=== PATIENT | male | born 1960 | race Caucasian/White ===

== ENCOUNTER 2020-07-07 07:16 | Inpatient (IN) | payer MEDICAID ==
[~2020-07-07] VITALS: Ht 190.5 cm; Wt 98.1 kg
[~2020-07-07 07:16] MED LIST: ALB5IS NEB; ALBUAER3 IN; FLUT250M2 INH; OME20T PO; THIA50CA PO
[2020-07-07] MEDS ORDERED: MORPHINE SULFATE 4 MG/ML SYR/VIAL IV PRN (08:00)
[2020-07-07] MEDS ORDERED: ONDANSETRON HCL 4 MG/2 ML VIAL IV ONE (08:00)
[2020-07-07] MEDS ORDERED: SODIUM CHLORIDE 0.9% 500 ML IV ONE (08:00)
[2020-07-07] MEDS ORDERED: ACETAMINOPHEN 325 MG TAB PO PRN ×2 (08:00→16:15)
[2020-07-07] MEDS ORDERED: VANCOMYCIN PER PHARMACY 0 MG IV SCH ×2 (08:15→16:15)
[2020-07-07] MEDS: PIPERACILLIN-TAZOB 3.375GM 100 ML IV SCH ×3 (08:30→20:30)
[2020-07-07 08:39] LABS: Alanine Aminotransferase 36 U/L (16-61); Albumin 3.2 g/dL (3.4-5.0); Anion Gap 11 (5-15); Aspartate Aminotransferase 34 U/L (15-37); BUN/Creatinine Ratio 11.3; Blood Urea Nitrogen 11 mg/dL (7-18); Calcium 8.2 mg/dL (8.5-10.1); Carbon Dioxide 26 mmol/L (21-32); Chloride 98 mmol/L (98-107); GFR African American 101 mL/min; GFR Non-African American 83 mL/min; Glucose 118 mg/dL (74-106); Potassium 4.1 mmol/L (3.5-5.1); Sodium 135 mmol/L (136-145)
[2020-07-07 08:41] LABS: Lactic Acid w/Reflex 4.4 mmol/L (0.4-2.0); Total Protein 7.3 g/dL (6.4-8.2)
[2020-07-07 08:44] LABS: Alkaline Phosphatase 121 U/L (45-117); Bilirubin, Total 1.3 mg/dL (0.2-1.0); Creatine Kinase IFCC 70 U/L (39-308)
[2020-07-07 08:58] LABS: Basophils # (auto) 0.1 10 ^3/uL (0-0.2); Basophils % (auto) 0.3 % (0.0-2.0); Eosinophils # (auto) 0 10 ^3/uL (0-0.8); Hematocrit 51.3 % (41.0-53.0); Hemoglobin 17.5 g/dL (13.5-17.5); Lymphocytes # (auto) 1.3 10 ^3/uL (0.4-5.4); Lymphocytes % (auto) 6.8 % (10.0-50.0); Mean Corpuscular Hemoglobin 36.5 pg (28.0-32.0); Mean Corpuscular Hgb Conc. 34.1 g/dL (32.0-36.0); Mean Corpuscular Volume 107.1 fL (80.0-100.0); Monocytes # (auto) 0.3 10 ^3/uL (0-1.3); Monocytes % (auto) 1.8 % (0.0-12.0); Neutrophils # (auto) 17.6 10 ^3/uL (1.6-8.6); Neutrophils % (auto) 91.1 % (37.0-80.0); Nucleated Red Blood Cells % 0.1 %; Red Blood Cells 4.79 10^6/uL (4.5-5.90); Red Cell Distribution Width 14.2 % (11.8-14.3); White Blood Cell 19.3 10^3/uL (4.4-10.8)
[2020-07-07 09:18] LABS: INR 1.08 (0.9-1.15); Partial Thromboplastin Time 26.4 sec (23.0-31.2)
[2020-07-07] MEDS ORDERED: VANCOMYCIN 1GM/250ML 250 ML IV SCH (10:00)
[2020-07-07 11:43] VITALS: BP 125/80
[2020-07-07] MEDS ORDERED: PIPERACILLIN-TAZOB 3.375GM 100 ML IV SCH (12:00)
[2020-07-07] MEDS: VANCOMYCIN 1GM/250ML 250 ML IV SCH (12:06)
[2020-07-07 13:30] VITALS: BP 125/80
[2020-07-07] MEDS ORDERED: IOPAMIDOL 76 % (ISOVUE-370) 100ML BTL IV ONE (13:32)
[2020-07-07 13:44] VITALS: BP 121/82
[2020-07-07] MEDS ORDERED: MORPHINE SULFATE 4 MG/ML SYR/VIAL IV ONE (15:45)
[2020-07-07] MEDS ORDERED: SODIUM CHLORIDE 0.9% 1,000 ML IV ONE (15:45)
[2020-07-07] MEDS ORDERED: MORPHINE SULFATE INJECTION 2 MG/ML SYRG IV PRN (16:15)
[2020-07-07] MEDS ORDERED: NITROGLYCERIN 0.4 MG SL TAB SL PRN (16:15)
[2020-07-07] MEDS ORDERED: ONDANSETRON HCL 4 MG/2 ML VIAL IV PRN (16:15)
[2020-07-07] MEDS: ENOXAPARIN SOD 40 MG/0.4 ML SYRINGE SC SCH (16:33)
[2020-07-07 17:54] VITALS: BP 118/88
[2020-07-07] MEDS ORDERED: PIPERACILLIN-TAZOB 2.25GM 50 ML IV SCH (18:00)
[2020-07-07 20:00] VITALS: BP 108/84
[2020-07-07 22:00] VITALS: BP 119/85
[2020-07-08] VITALS (36 sets, daily range): BP systolic 91–152; BP diastolic 52–94
[2020-07-08] MEDS: ALBUTEROL SULF 2.5 MG/0.5ML(0.5%) NEB SOLN NEB PRN ×2 (00:06→06:16)
[2020-07-08] MEDS: VANCOMYCIN 1GM/250ML 250 ML IV SCH ×3 (00:53→12:46)
[2020-07-08] MEDS: methylPREDNISolone SOD SUCC 40 MG/ML VL IV SCH ×4 (00:53→22:58)
[2020-07-08] MEDS: PIPERACILLIN-TAZOB 3.375GM 100 ML IV SCH ×4 (02:30→22:58)
[2020-07-08 05:26] LABS: Basophils # (auto) 0 10 ^3/uL (0-0.2); Basophils % (auto) 0.1 % (0.0-2.0); Eosinophils # (auto) 0 10 ^3/uL (0-0.8)
[2020-07-08 05:28] LABS: Eosinophils % (auto) 0.1 % (0.0-7.0); Hematocrit 43.9 % (41.0-53.0); Hemoglobin 15.2 g/dL (13.5-17.5); Lymphocytes # (auto) 0.6 10 ^3/uL (0.4-5.4); Lymphocytes % (auto) 3.5 % (10.0-50.0); Mean Corpuscular Hemoglobin 37.1 pg (28.0-32.0); Mean Corpuscular Hgb Conc. 34.7 g/dL (32.0-36.0); Mean Corpuscular Volume 106.9 fL (80.0-100.0); Monocytes # (auto) 0.4 10 ^3/uL (0-1.3); Monocytes % (auto) 2.3 % (0.0-12.0); Red Cell Distribution Width 14.3 % (11.8-14.3)
[2020-07-08 05:46] LABS: Potassium 4.4 mmol/L (3.5-5.1)
[2020-07-08 05:54] LABS: BUN/Creatinine Ratio 22.9; Calcium 8.4 mg/dL (8.5-10.1)
[2020-07-08] MEDS: PANTOPRAZOLE 40 MG/10 ML VIAL INJ IV SCH (09:06)
[2020-07-08] MEDS: ENOXAPARIN SOD 40 MG/0.4 ML SYRINGE SC SCH (09:06)
[2020-07-08] MEDS ORDERED: ALBUTEROL SULF 2.5 MG/0.5ML(0.5%) NEB SOLN NEB PRN (14:45)
[2020-07-08] MEDS ORDERED: IPRATROPIUM BROM 0.5 MG/2.5ML INH SOL NEB PRN (14:45)
[2020-07-08] MEDS: IPRATROPIUM BROM 0.5 MG/2.5ML INH SOL NEB SCH ×3 (15:11→21:58)
[2020-07-08] MEDS: ALBUTEROL SULF 2.5 MG/0.5ML(0.5%) NEB SOLN NEB SCH ×3 (15:11→21:58)
[2020-07-08] MEDS: SODIUM CHLORIDE 0.9% 1,000 ML IV SCH (15:32)
[2020-07-08] MEDS: HYDROcodone-ACET 5/325MG TAB PO PRN (18:12)
[2020-07-09] VITALS (22 sets, daily range): BP systolic 119–175; BP diastolic 78–113
[2020-07-09] MEDS: IPRATROPIUM BROM 0.5 MG/2.5ML INH SOL NEB SCH ×6 (02:23→22:06)
[2020-07-09] MEDS: ALBUTEROL SULF 2.5 MG/0.5ML(0.5%) NEB SOLN NEB SCH ×6 (02:23→22:06)
[2020-07-09] MEDS: SODIUM CHLORIDE 0.9% 1,000 ML IV SCH ×4 (06:45→21:51)
[2020-07-09] MEDS: methylPREDNISolone SOD SUCC 40 MG/ML VL IV SCH ×3 (07:32→21:42)
[2020-07-09] MEDS: PIPERACILLIN-TAZOB 3.375GM 100 ML IV SCH ×4 (07:33→21:00)
[2020-07-09] MEDS: MORPHINE SULFATE INJECTION 2 MG/ML SYRG IV PRN (07:38)
[2020-07-09] MEDS: PANTOPRAZOLE 40 MG/10 ML VIAL INJ IV SCH (09:51)
[2020-07-09] MEDS: ENOXAPARIN SOD 40 MG/0.4 ML SYRINGE SC SCH (09:52)
[2020-07-09] MEDS: HYDROcodone-ACET 5/325MG TAB PO PRN (11:56)
[2020-07-09] MEDS: VANCOMYCIN 1GM/250ML 250 ML IV SCH ×2 (12:34→20:00)
[2020-07-09] MEDS: ASPirin 325 MG TAB PO SCH (16:02)
[2020-07-09] MEDS: CARVEDILOL 3.125 MG TAB PO SCH ×2 (16:03→21:45)
[2020-07-09] MEDS: ENOXAPARIN SOD 100 MG/1 ML SYRINGE SC SCH (21:46)
[2020-07-10] VITALS (24 sets, daily range): BP systolic 107–167; BP diastolic 65–136
[2020-07-10] MEDS: PIPERACILLIN-TAZOB 3.375GM 100 ML IV SCH ×4 (02:07→20:30)
[2020-07-10] MEDS: IPRATROPIUM BROM 0.5 MG/2.5ML INH SOL NEB SCH ×6 (02:41→22:28)
[2020-07-10] MEDS: ALBUTEROL SULF 2.5 MG/0.5ML(0.5%) NEB SOLN NEB SCH ×6 (02:41→22:28)
[2020-07-10] MEDS: VANCOMYCIN 1GM/250ML 250 ML IV SCH ×3 (04:00→20:00)
[2020-07-10 04:18] LABS: Basophils # (auto) 0 10 ^3/uL (0-0.2); Basophils % (auto) 0.1 % (0.0-2.0); Eosinophils # (auto) 0 10 ^3/uL (0-0.8); Eosinophils % (auto) 0.1 % (0.0-7.0); Hematocrit 40.6 % (41.0-53.0); Hemoglobin 13.7 g/dL (13.5-17.5); Lymphocytes # (auto) 0.9 10 ^3/uL (0.4-5.4); Mean Corpuscular Hemoglobin 36.4 pg (28.0-32.0); Mean Corpuscular Hgb Conc. 33.8 g/dL (32.0-36.0); Mean Corpuscular Volume 107.8 fL (80.0-100.0); Monocytes # (auto) 0.4 10 ^3/uL (0-1.3); Monocytes % (auto) 3.4 % (0.0-12.0); Neutrophils # (auto) 9.7 10 ^3/uL (1.6-8.6); Neutrophils % (auto) 88.4 % (37.0-80.0); Nucleated Red Blood Cells % 0.1 %; Red Blood Cells 3.77 10^6/uL (4.5-5.90); Red Cell Distribution Width 14.3 % (11.8-14.3); White Blood Cell 10.9 10^3/uL (4.4-10.8)
[2020-07-10 04:23] LABS: BUN/Creatinine Ratio 33.3; Calcium 7.9 mg/dL (8.5-10.1); Magnesium 2.2 mg/dL (1.6-2.6); Potassium 5.1 mmol/L (3.5-5.1)
[2020-07-10] MEDS: SODIUM CHLORIDE 0.9% 1,000 ML IV SCH ×2 (06:05→22:45)
[2020-07-10] MEDS: methylPREDNISolone SOD SUCC 40 MG/ML VL IV SCH ×3 (06:10→22:15)
[2020-07-10] MEDS: HYDROcodone-ACET 5/325MG TAB PO PRN ×3 (08:52→22:49)
[2020-07-10] MEDS: PANTOPRAZOLE 40 MG/10 ML VIAL INJ IV SCH (09:03)
[2020-07-10] MEDS: ASPirin 325 MG TAB PO SCH (09:03)
[2020-07-10] MEDS: CARVEDILOL 3.125 MG TAB PO SCH ×2 (09:04→22:15)
[2020-07-10] MEDS: ENALAPRIL MALEATE 2.5 MG TAB PO SCH (09:04)
[2020-07-10] MEDS: ENOXAPARIN SOD 100 MG/1 ML SYRINGE SC SCH ×2 (09:05→22:15)
[2020-07-10] MEDS ORDERED: BUDESONIDE (INHALATION) 0.5 MG/2 ML NEB NEB ONE (15:00)
[2020-07-10] MEDS: BUDESONIDE (INHALATION) 0.5 MG/2 ML NEB NEB SCH (18:17)
[2020-07-10] MEDS: SENNA 8.6 MG TAB PO SCH (22:15)
[2020-07-10] MEDS: DOCUSATE SOD 100 MG CAP PO SCH (22:15)
[2020-07-11] VITALS (11 sets, daily range): BP systolic 127–156; BP diastolic 85–108
[2020-07-11] MEDS: PIPERACILLIN-TAZOB 3.375GM 100 ML IV SCH ×4 (02:28→20:48)
[2020-07-11] MEDS: HYDROcodone-ACET 5/325MG TAB PO PRN ×2 (03:46→09:37)
[2020-07-11] MEDS: VANCOMYCIN 1GM/250ML 250 ML IV SCH ×3 (03:46→20:02)
[2020-07-11 05:44] LABS: Basophils # (auto) 0 10 ^3/uL (0-0.2); Eosinophils # (auto) 0 10 ^3/uL (0-0.8); Hemoglobin 13.2 g/dL (13.5-17.5); Lymphocytes # (auto) 0.8 10 ^3/uL (0.4-5.4); Monocytes # (auto) 0.4 10 ^3/uL (0-1.3)
[2020-07-11] MEDS: methylPREDNISolone SOD SUCC 40 MG/ML VL IV SCH ×3 (05:47→22:05)
[2020-07-11 05:48] LABS: Lymphocytes % (auto) 11.7 % (10.0-50.0); Mean Corpuscular Hemoglobin 36.9 pg (28.0-32.0); Mean Corpuscular Hgb Conc. 34.7 g/dL (32.0-36.0); Mean Corpuscular Volume 106.4 fL (80.0-100.0); Monocytes % (auto) 5.1 % (0.0-12.0); Neutrophils % (auto) 83.2 % (37.0-80.0); Red Blood Cells 3.57 10^6/uL (4.5-5.90); Red Cell Distribution Width 13.8 % (11.8-14.3); White Blood Cell 7.2 10^3/uL (4.4-10.8)
[2020-07-11] MEDS: IPRATROPIUM BROM 0.5 MG/2.5ML INH SOL NEB SCH ×5 (06:01→22:37)
[2020-07-11] MEDS: ALBUTEROL SULF 2.5 MG/0.5ML(0.5%) NEB SOLN NEB SCH ×5 (06:01→22:37)
[2020-07-11 06:13] LABS: BUN/Creatinine Ratio 26.2; Potassium 4.2 mmol/L (3.5-5.1)
[2020-07-11] MEDS: PANTOPRAZOLE 40 MG/10 ML VIAL INJ IV SCH (09:57)
[2020-07-11] MEDS: DOCUSATE SOD 100 MG CAP PO SCH ×2 (09:57→22:06)
[2020-07-11] MEDS: CARVEDILOL 3.125 MG TAB PO SCH ×2 (09:58→22:06)
[2020-07-11] MEDS: ENALAPRIL MALEATE 2.5 MG TAB PO SCH (09:59)
[2020-07-11] MEDS: ENOXAPARIN SOD 100 MG/1 ML SYRINGE SC SCH (09:59)
[2020-07-11] MEDS ORDERED: ASPirin 81 mg TAB PO SCH (10:00)
[2020-07-11] MEDS: BUDESONIDE (INHALATION) 0.5 MG/2 ML NEB NEB SCH ×2 (10:40→18:48)
[2020-07-11] MEDS: FUROSEMIDE 20 MG/2 ML VIAL IV SCH (12:14)
[2020-07-11] MEDS ORDERED: hydrALAZINE HCL 20 MG/ML VL IV PRN (13:15)
[2020-07-11] MEDS: ACETYLCYSTEINE 10 %(100MG/ML) SOL 4ML NEB SCH ×2 (14:01→18:48)
[2020-07-11] MEDS ORDERED: ALBUTEROL SULF HFA 90MCG INH 200DOSE IN PRN (16:00)
[2020-07-11] MEDS: APIXABAN 5 MG TAB PO SCH (18:16)
[2020-07-11] MEDS: SENNA 8.6 MG TAB PO SCH (22:06)
[2020-07-11] MEDS: MORPHINE SULFATE INJECTION 2 MG/ML SYRG IV PRN (22:07)
[2020-07-12] MEDS: PIPERACILLIN-TAZOB 3.375GM 100 ML IV SCH ×4 (02:48→20:29)
[2020-07-12] MEDS: VANCOMYCIN 1GM/250ML 250 ML IV SCH ×3 (04:16→15:09)
[2020-07-12 05:00] VITALS: BP 149/97
[2020-07-12] MEDS: methylPREDNISolone SOD SUCC 40 MG/ML VL IV SCH ×3 (06:02→22:16)
[2020-07-12 06:57] LABS: Basophils # (auto) 0 10 ^3/uL (0-0.2); Eosinophils # (auto) 0 10 ^3/uL (0-0.8); Hemoglobin 14.2 g/dL (13.5-17.5); Nucleated Red Blood Cells % 0.1 %; White Blood Cell 8.5 10^3/uL (4.4-10.8)
[2020-07-12] MEDS: ALBUTEROL SULF 2.5 MG/0.5ML(0.5%) NEB SOLN NEB SCH ×4 (06:57→23:56)
[2020-07-12] MEDS: IPRATROPIUM BROM 0.5 MG/2.5ML INH SOL NEB SCH ×5 (06:57→23:56)
[2020-07-12] MEDS: ACETYLCYSTEINE 10 %(100MG/ML) SOL 4ML NEB SCH ×3 (06:58→21:06)
[2020-07-12 07:00] LABS: Basophils % (auto) 0.1 % (0.0-2.0); Eosinophils % (auto) 0.1 % (0.0-7.0); Hematocrit 41.4 % (41.0-53.0); Lymphocytes # (auto) 1.2 10 ^3/uL (0.4-5.4); Lymphocytes % (auto) 13.9 % (10.0-50.0); Mean Corpuscular Hemoglobin 36.2 pg (28.0-32.0); Mean Corpuscular Hgb Conc. 34.4 g/dL (32.0-36.0); Mean Corpuscular Volume 105.4 fL (80.0-100.0); Monocytes # (auto) 0.5 10 ^3/uL (0-1.3); Monocytes % (auto) 6.1 % (0.0-12.0); Neutrophils # (auto) 6.7 10 ^3/uL (1.6-8.6); Neutrophils % (auto) 79.8 % (37.0-80.0); Red Blood Cells 3.92 10^6/uL (4.5-5.90); Red Cell Distribution Width 13.9 % (11.8-14.3)
[2020-07-12] MEDS: BUDESONIDE (INHALATION) 0.5 MG/2 ML NEB NEB SCH ×2 (07:02→21:05)
[2020-07-12 07:30] LABS: Potassium 4.1 mmol/L (3.5-5.1)
[2020-07-12 07:34] LABS: BUN/Creatinine Ratio 27.1; Magnesium 2.3 mg/dL (1.6-2.6)
[2020-07-12 09:00] VITALS: BP 113/58
[2020-07-12] MEDS: APIXABAN 5 MG TAB PO SCH ×2 (10:15→17:49)
[2020-07-12] MEDS: DOCUSATE SOD 100 MG CAP PO SCH ×2 (10:16→22:16)
[2020-07-12] MEDS: FUROSEMIDE 20 MG/2 ML VIAL IV SCH (10:16)
[2020-07-12] MEDS: PANTOPRAZOLE 40 MG/10 ML VIAL INJ IV SCH (10:16)
[2020-07-12] MEDS: ENALAPRIL MALEATE 2.5 MG TAB PO SCH (10:16)
[2020-07-12] MEDS: CARVEDILOL 3.125 MG TAB PO SCH ×2 (10:17→22:17)
[2020-07-12 13:00] VITALS: BP 138/93
[2020-07-12] MEDS ORDERED: FURO1TAB31 PO (14:48)
[2020-07-12] MEDS ORDERED: ALBUAER3 IN (14:48)
[2020-07-12] MEDS ORDERED: IPRA0.00 IN (14:48)
[2020-07-12] MEDS ORDERED: APIX5TAB PO (14:48)
[2020-07-12] MEDS ORDERED: PRED20TA2 PO (14:48)
[2020-07-12] MEDS ORDERED: FLUT250M2 INH (14:48)
[2020-07-12] MEDS ORDERED: ENAL10TA12 PO (14:48)
[2020-07-12] MEDS ORDERED: CAR3125T PO (14:48)
[2020-07-12] MEDS ORDERED: HYDR-4902 PO (14:49)
[2020-07-12] MEDS ORDERED: DOXY-346 PO (14:53)
[2020-07-12] MEDS: HYDROcodone-ACET 5/325MG TAB PO PRN ×2 (15:18→23:13)
[2020-07-12 17:00] VITALS: BP 153/91
[2020-07-12 21:33] VITALS: BP 140/96
[2020-07-12] MEDS: SENNA 8.6 MG TAB PO SCH ×2 (21:55→22:16)
[2020-07-13] MEDS: VANCOMYCIN 1GM/250ML 250 ML IV SCH ×3 (00:10→13:41)
[2020-07-13] MEDS: PIPERACILLIN-TAZOB 3.375GM 100 ML IV SCH ×4 (02:19→21:55)
[2020-07-13 05:00] VITALS: BP 133/90
[2020-07-13] MEDS: methylPREDNISolone SOD SUCC 40 MG/ML VL IV SCH ×3 (05:13→21:55)
[2020-07-13] MEDS: ALBUTEROL SULF 2.5 MG/0.5ML(0.5%) NEB SOLN NEB SCH ×5 (06:33→22:34)
[2020-07-13] MEDS: IPRATROPIUM BROM 0.5 MG/2.5ML INH SOL NEB SCH ×5 (06:33→22:33)
[2020-07-13] MEDS: BUDESONIDE (INHALATION) 0.5 MG/2 ML NEB NEB SCH ×2 (06:33→22:34)
[2020-07-13] MEDS: ACETYLCYSTEINE 10 %(100MG/ML) SOL 4ML NEB SCH ×3 (06:33→22:34)
[2020-07-13 08:43] VITALS: BP 157/96
[2020-07-13] MEDS: APIXABAN 5 MG TAB PO SCH ×2 (09:17→17:25)
[2020-07-13] MEDS: HYDROcodone-ACET 5/325MG TAB PO PRN ×2 (09:30→22:30)
[2020-07-13] MEDS: FUROSEMIDE 20 MG/2 ML VIAL IV SCH (09:41)
[2020-07-13 10:01] VITALS: BP 154/92
[2020-07-13] MEDS: CARVEDILOL 3.125 MG TAB PO SCH ×2 (10:55→21:57)
[2020-07-13] MEDS: ENALAPRIL MALEATE 2.5 MG TAB PO SCH (10:56)
[2020-07-13] MEDS: DOCUSATE SOD 100 MG CAP PO SCH ×2 (10:57→21:55)
[2020-07-13 16:36] VITALS: BP 146/104
[2020-07-13 21:00] VITALS: BP 152/95
[2020-07-13] MEDS: SENNA 8.6 MG TAB PO SCH (21:56)
[2020-07-14] MEDS: VANCOMYCIN 1GM/250ML 250 ML IV SCH ×2 (00:56→09:48)
[2020-07-14] MEDS: PIPERACILLIN-TAZOB 3.375GM 100 ML IV SCH ×2 (03:30→08:20)
[2020-07-14 05:00] VITALS: BP 153/96
[2020-07-14] MEDS: methylPREDNISolone SOD SUCC 40 MG/ML VL IV SCH (05:38)
[2020-07-14] MEDS: ACETYLCYSTEINE 10 %(100MG/ML) SOL 4ML NEB SCH (06:25)
[2020-07-14] MEDS: IPRATROPIUM BROM 0.5 MG/2.5ML INH SOL NEB SCH ×2 (06:25→10:09)
[2020-07-14] MEDS: ALBUTEROL SULF 2.5 MG/0.5ML(0.5%) NEB SOLN NEB SCH ×2 (06:25→10:09)
[2020-07-14] MEDS: BUDESONIDE (INHALATION) 0.5 MG/2 ML NEB NEB SCH (06:25)
[2020-07-14 07:14] LABS: Hematocrit 44.6 % (41.0-53.0); Hemoglobin 15.5 g/dL (13.5-17.5); Mean Corpuscular Hemoglobin 36.6 pg (28.0-32.0); Mean Corpuscular Hgb Conc. 34.7 g/dL (32.0-36.0); Mean Corpuscular Volume 105.5 fL (80.0-100.0); Red Blood Cells 4.22 10^6/uL (4.5-5.90); White Blood Cell 12.6 10^3/uL (4.4-10.8)
[2020-07-14 07:18] LABS: Basophils % (manual) 0 (0.0-2.0); Blast Cells 0; Eosinophils % (manual) 0 (0-7); Metamyelocytes % 0; Myelocytes % 0; Promyelocytes % 0; Reactive Lymphocytes 0
[2020-07-14] MEDS: APIXABAN 5 MG TAB PO SCH (08:20)
[2020-07-14] MEDS: HYDROcodone-ACET 5/325MG TAB PO PRN (08:21)
[2020-07-14 09:00] VITALS: BP 145/88
[2020-07-14] MEDS: FUROSEMIDE 20 MG/2 ML VIAL IV SCH (09:49)
[2020-07-14] MEDS: DOCUSATE SOD 100 MG CAP PO SCH (09:49)
[2020-07-14] MEDS: CARVEDILOL 3.125 MG TAB PO SCH (09:50)
[2020-07-14] MEDS: ENALAPRIL MALEATE 2.5 MG TAB PO SCH (09:51)
[2020-07-14 12:19] LABS: Band Neutrophils % (manual) 1; Lymphocytes % (manual) 16 (10.0-50.0); Monocytes % (manual) 7 (0-12)
[2020-07-14 12:35] VITALS: BP 145/88
== END 2020-07-14 13:05 | disposition home health service (06) | DRG 720 ==
LOC: ER 07:16 → EDBD 07:16 → OVERFLOW 07:17 → DOU IN ICU 23:26 → TELE-WESTW 07-11 15:19
PROVIDERS: ADMIT Internal Medicine; ATTEND Internal Medicine
PROC: 5A09357 Assistance with Respiratory Ventilation, Less than 24 Consecutive Hours, Continuous Positive Airway Pressure (ICD-10-PCS; principal; 2020-07-07)
PROC: 5A09357 Assistance with Respiratory Ventilation, Less than 24 Consecutive Hours, Continuous Positive Airway Pressure (ICD-10-PCS; 2020-07-08)
DX: A41.9 Sepsis, unspecified organism (principal); J96.01 Acute respiratory failure with hypoxia; J15.9 Unspecified bacterial pneumonia; J44.1 Chronic obstructive pulmonary disease with (acute) exacerbation; E11.9 Type 2 diabetes mellitus without complications; F17.200 Nicotine dependence, unspecified, uncomplicated; E66.9 Obesity, unspecified; I48.91 Unspecified atrial fibrillation; I50.9 Heart failure, unspecified; J44.0 Chronic obstructive pulmonary disease with (acute) lower respiratory infection; K40.90 Unilateral inguinal hernia, without obstruction or gangrene, not specified as recurrent; Z20.822 Contact with and (suspected) exposure to COVID-19; Z68.27 Body mass index [BMI] 27.0-27.9, adult; F41.9 Anxiety disorder, unspecified; I48.20 Chronic atrial fibrillation, unspecified; I11.0 Hypertensive heart disease with heart failure; F12.90 Cannabis use, unspecified, uncomplicated
CPT/HCPCS: 36415; 36600; 71045; 71275; 80048; 80053; 80202; 82550; 82565; 82728; 82805; 82962; 83605; 83735; 83880; 84484; 85007; 85025; 85027; 85379; 85384; 85610; 85730; 87040; 87081; 87426; 93005; 93306; 94640; 94660; C9113; G0378; J2405; J2543

== ENCOUNTER → 2021-06-25 | Outpatient (CLI) | payer MEDICAID ==
[~2021-06-25] VITALS: Ht 182.9 cm; Wt 95.3 kg
[~2021-06-25] MED LIST changes: -ALB5IS NEB; +APIX5TAB PO; +CAR3125T PO; +DOXY-346 PO; +ENAL10TA12 PO; +FURO1TAB31 PO; +HYDR-4902 PO; +IPRA0.00 IN; +PRED20TA2 PO; +REGADENOSON 0.4 MG/5 ML SYRG IV ONE
== END | disposition home or self-care (01) ==
LOC: XY 07:59
PROVIDERS: ATTEND Internal Medicine
DX: I25.10 Atherosclerotic heart disease of native coronary artery without angina pectoris (principal); J44.9 Chronic obstructive pulmonary disease, unspecified; M19.90 Unspecified osteoarthritis, unspecified site; M54.9 Dorsalgia, unspecified; S19.9XXS Unspecified injury of neck, sequela; V89.2XXA Person injured in unspecified motor-vehicle accident, traffic, initial encounter; S22.000S Wedge compression fracture of unspecified thoracic vertebra, sequela; S32.000S Wedge compression fracture of unspecified lumbar vertebra, sequela
CPT/HCPCS: 78452; 93017; A9500; J2785

== ENCOUNTER → 2021-07-15 | Outpatient (CLI) | payer MEDICAID ==
[~2021-07-15] MED LIST changes: +BUPIVACAINE HCL 0.25% P/F 10 ML VIAL ONE; +IOHEXOL 300 MG/ML 100ML BOTTLE IJ ONE; -REGADENOSON 0.4 MG/5 ML SYRG IV ONE; +methylPREDNISolone ACETATE 80 MG/ML VL ONE
== END | disposition home or self-care (01) ==
LOC: XYW 13:22
PROVIDERS: ATTEND Orthopaedic Surgery Adult Reconstructive Orthopaedic Surgery
DX: M25.512 Pain in left shoulder (principal); J44.9 Chronic obstructive pulmonary disease, unspecified; F17.200 Nicotine dependence, unspecified, uncomplicated; Z82.49 Family history of ischemic heart disease and other diseases of the circulatory system; Z80.3 Family history of malignant neoplasm of breast; Z82.69 Family history of other diseases of the musculoskeletal system and connective tissue
CPT/HCPCS: 20611; 73020; Q9967; 76000; J3490

== ENCOUNTER 2022-03-13 14:56 | Inpatient (IN) | payer MEDICAID ==
[~2022-03-13] VITALS: Ht 188 cm; Wt 88.3 kg
[2022-03-13] MEDS ORDERED: SODIUM CHLORIDE 0.9% 1,000 ML IV ONE (16:30)
[2022-03-13] MEDS ORDERED: LACTATED RINGER'S 1,000 ML IV ONE (16:30)
[2022-03-13] MEDS ORDERED: POTASSIUM EFFERVESENT TAB 25 MEQ PO ONE (16:30)
[2022-03-13] MEDS ORDERED: POTASSIUM CHL 20MEQ/100ML 100 ML IV ONE (16:30)
[2022-03-13] MEDS ORDERED: MORPHINE SULFATE INJ 2 MG/ml SYRG IV PRN (18:30)
[2022-03-13] MEDS ORDERED: NITROGLYCERIN 0.4 MG SL TAB SL PRN (18:30)
[2022-03-13] MEDS ORDERED: ONDANSETRON HCL 4 MG/2 ML VIAL IV PRN (18:30)
[2022-03-13] MEDS ORDERED: DOCUSATE SOD 100 MG CAP PO PRN (18:30)
[2022-03-13] MEDS ORDERED: ALBUTEROL SULF HFA 90MCG INH 200DOSE IN PRN (19:00)
[2022-03-13] MEDS ORDERED: DEXTROSE (50%) 50ML SYRG IV PRN (19:00)
[2022-03-13 20:00] LABS: Phosphorus 4.7 mg/dL (2.5-4.90)
[2022-03-13 20:10] LABS: Potassium 2.6 mmol/L (3.5-5.1)
[2022-03-13 21:44] LABS: INR 1.01 (0.9-1.15)
[2022-03-13] MEDS ORDERED: IPRATROPIUM BROMIDE HFA AER IN SCH (22:00)
[2022-03-13 23:32] LABS: Basophils # (auto) 0.1 10 ^3/uL (0-0.2); Eosinophils # (auto) 0.1 10 ^3/uL (0-0.8); Monocytes # (auto) 0.6 10 ^3/uL (0-1.3); White Blood Cell 7.4 10^3/uL (4.4-10.8)
[2022-03-13 23:33] LABS: Basophils % (auto) 0.7 % (0.0-2.0); Eosinophils % (auto) 1.4 % (0.0-7.0); Hematocrit 36.8 % (41.0-53.0); Hemoglobin 12.9 g/dL (13.5-17.5); Lymphocytes % (auto) 40.3 % (10.0-50.0); Mean Corpuscular Hemoglobin 38.1 pg (28.0-32.0); Mean Corpuscular Volume 108.9 fL (80.0-100.0); Monocytes % (auto) 8.4 % (0.0-12.0); Neutrophils # (auto) 3.6 10 ^3/uL (1.6-8.6); Neutrophils % (auto) 49.2 % (37.0-80.0); Nucleated Red Blood Cells % 0.1 %; Red Blood Cells 3.38 10^6/uL (4.5-5.90); Red Cell Distribution Width 16.4 % (11.8-14.3)
[2022-03-13 23:48] LABS: Albumin 2.2 g/dL (3.4-5.0); Calcium 6.8 mg/dL (8.5-10.1)
[2022-03-13 23:51] LABS: Bilirubin, Total 0.6 mg/dL (0.2-1.0); Total Protein 4.8 g/dL (6.4-8.2)
[2022-03-13 23:52] LABS: Potassium 2.5 mmol/L (3.5-5.1)
[2022-03-14] MEDS ORDERED: MAGNESIUM SULFATE 1GM/100ML 100 ML IV SCH
[2022-03-14] MEDS: CARVEDILOL 3.125 MG TAB PO SCH ×3 (00:35→22:08)
[2022-03-14] MEDS: APIXABAN 5 MG TAB PO SCH ×2 (00:35→08:42)
[2022-03-14] MEDS: SACUBITRIL-VALSARTAN 24mg/26mg TAB PO SCH ×3 (00:35→22:08)
[2022-03-14] MEDS: GABAPENTIN 300 MG CAP PO SCH ×3 (00:36→22:08)
[2022-03-14] MEDS: MAGNESIUM SULFATE 1GM/100ML 100 ML IV SCH ×2 (00:36→01:50)
[2022-03-14] MEDS: SODIUM CHLORIDE 0.9% 1,000 ML IV SCH ×4 (00:37→22:21)
[2022-03-14] MEDS: ACCU-CHEK COMFORT CURVE STRIP VI SCH ×5 (01:08→22:09)
[2022-03-14] MEDS: InsuLIN REG 1unit/0.01ml Soln (100units/ml) SC SCH ×5 (01:09→22:00)
[2022-03-14] MEDS ORDERED: POTASSIUM CHL 20MEQ/100ML 200 ML IV ONE (03:33)
[2022-03-14] MEDS: POTASSIUM CHL 20MEQ/100ML 100 ML IV SCH ×3 (03:33→06:41)
[2022-03-14 05:23] LABS: Basophils # (auto) 0 10 ^3/uL (0-0.2); Monocytes # (auto) 0.7 10 ^3/uL (0-1.3); Neutrophils # (auto) 3.5 10 ^3/uL (1.6-8.6); Nucleated Red Blood Cells % 0.1 %; Red Blood Cells 3.55 10^6/uL (4.5-5.90)
[2022-03-14 05:26] LABS: Basophils % (auto) 0.6 % (0.0-2.0); Eosinophils # (auto) 0.1 10 ^3/uL (0-0.8); Hematocrit 38.9 % (41.0-53.0); Hemoglobin 13.5 g/dL (13.5-17.5); Lymphocytes % (auto) 41.2 % (10.0-50.0); Mean Corpuscular Hemoglobin 38.1 pg (28.0-32.0); Mean Corpuscular Hgb Conc. 34.8 g/dL (32.0-36.0); Mean Corpuscular Volume 109.5 fL (80.0-100.0); Neutrophils % (auto) 47.2 % (37.0-80.0); Red Cell Distribution Width 16.3 % (11.8-14.3); White Blood Cell 7.4 10^3/uL (4.4-10.8)
[2022-03-14 05:37] LABS: Albumin 2.2 g/dL (3.4-5.0); Calcium 6.8 mg/dL (8.5-10.1); INR 0.98 (0.9-1.15); Partial Thromboplastin Time 26.8 sec (24.6-33.4)
[2022-03-14 05:40] LABS: BUN/Creatinine Ratio 15.2
[2022-03-14 05:43] LABS: Bilirubin, Total 0.7 mg/dL (0.2-1.0); Potassium 2.6 mmol/L (3.5-5.1); Total Protein 5.2 g/dL (6.4-8.2)
[2022-03-14] MEDS: ATORVASTATIN 20 MG TAB PO SCH (08:41)
[2022-03-14] MEDS: NICOTINE 21MG/24 HR TOPICAL PATCH TD SCH (08:42)
[2022-03-14] MEDS: THIAMINE HCL 100 MG TAB PO SCH (08:42)
[2022-03-14] MEDS: FUROSEMIDE 40 MG TAB PO SCH (08:42)
[2022-03-14] MEDS: OMEPRAZOLE 20MG/10ML ORAL SUSP PO SCH (08:42)
[2022-03-14] MEDS ORDERED: ENALAPRIL MALEATE 10 MG TAB PO SCH (10:00)
[2022-03-14 10:46] LABS: Albumin 2.4 g/dL (3.4-5.0); BUN/Creatinine Ratio 15.5; Bilirubin, Total 0.6 mg/dL (0.2-1.0); Calcium 7.1 mg/dL (8.5-10.1); Total Protein 5.1 g/dL (6.4-8.2)
[2022-03-14] MEDS ORDERED: POTASSIUM EFFERVESENT TAB 25 MEQ PO ONE (11:30)
[2022-03-14 13:00] VITALS: BP 127/89
[2022-03-14 13:13] VITALS: BP 132/91
[2022-03-14 17:00] VITALS: BP 131/85
[2022-03-14 22:00] VITALS: BP 126/76
[2022-03-14] MEDS: ENOXAPARIN SOD 80 MG/0.8ML SYRINGE SC SCH (22:09)
[2022-03-15] MEDS: SODIUM CHLORIDE 0.9% 1,000 ML IV SCH ×2 (03:50→13:23)
[2022-03-15 05:00] VITALS: BP 130/65
[2022-03-15] MEDS: ACCU-CHEK COMFORT CURVE STRIP VI SCH ×4 (06:23→22:07)
[2022-03-15] MEDS: InsuLIN REG 1unit/0.01ml Soln (100units/ml) SC SCH ×4 (06:25→22:00)
[2022-03-15 06:47] LABS: Potassium 3.1 mmol/L (3.5-5.1)
[2022-03-15 06:52] LABS: Albumin 2.1 g/dL (3.4-5.0); BUN/Creatinine Ratio 19.5; Calcium 6.9 mg/dL (8.5-10.1); Magnesium 1.4 mg/dL (1.6-2.6)
[2022-03-15 06:55] LABS: Bilirubin, Total 0.8 mg/dL (0.2-1.0); Total Protein 4.4 g/dL (6.4-8.2)
[2022-03-15 09:00] VITALS: BP 128/81
[2022-03-15] MEDS: SACUBITRIL-VALSARTAN 24mg/26mg TAB PO SCH ×2 (10:10→22:14)
[2022-03-15] MEDS: NICOTINE 21MG/24 HR TOPICAL PATCH TD SCH (10:10)
[2022-03-15] MEDS: CARVEDILOL 3.125 MG TAB PO SCH ×2 (10:11→22:07)
[2022-03-15] MEDS: FUROSEMIDE 40 MG TAB PO SCH (10:11)
[2022-03-15] MEDS: ATORVASTATIN 20 MG TAB PO SCH (10:12)
[2022-03-15] MEDS: THIAMINE HCL 100 MG TAB PO SCH (10:12)
[2022-03-15] MEDS: GABAPENTIN 300 MG CAP PO SCH ×2 (10:12→22:05)
[2022-03-15] MEDS: OMEPRAZOLE 20MG/10ML ORAL SUSP PO SCH (10:13)
[2022-03-15] MEDS: ENOXAPARIN SOD 80 MG/0.8ML SYRINGE SC SCH ×2 (10:13→22:05)
[2022-03-15] MEDS ORDERED: POTASSIUM EFFERVESENT TAB 25 MEQ GT ONE (12:15)
[2022-03-15 12:50] VITALS: BP 96/70
[2022-03-15] MEDS: MAGNESIUM SULFATE 1GM/100ML 100 ML IV SCH ×3 (13:02→18:00)
[2022-03-15] MEDS: MAGNESIUM OXIDE 400 MG TAB PO SCH ×2 (13:23→22:05)
[2022-03-15] MEDS: POTASSIUM CHL 20MEQ/100ML 100 ML IV SCH ×2 (13:24→15:11)
[2022-03-15 16:46] VITALS: BP 118/86
[2022-03-15] MEDS ORDERED: MAGNESIUM SULFATE 1GM/100ML 100 ML IV SCH (18:10)
[2022-03-15 22:00] VITALS: BP 136/75
[2022-03-15] MEDS ORDERED: MAGNESIUM OXIDE 400 MG TAB PO SCH (22:00)
[2022-03-15] MEDS: MORPHINE SULFATE INJ 2 MG/ml SYRG IV PRN (23:02)
[2022-03-16] MEDS: SODIUM CHLORIDE 0.9% 1,000 ML IV SCH ×2 (01:39→04:50)
[2022-03-16 05:00] VITALS: BP 125/65
[2022-03-16] MEDS: ACCU-CHEK COMFORT CURVE STRIP VI SCH ×4 (06:18→21:43)
[2022-03-16] MEDS: InsuLIN REG 1unit/0.01ml Soln (100units/ml) SC SCH ×4 (06:18→21:42)
[2022-03-16 09:00] VITALS: BP 142/100
[2022-03-16 09:24] LABS: Hepatitis B Surface Antibody Negative (Negative)
[2022-03-16] MEDS: MAGNESIUM OXIDE 400 MG TAB PO SCH ×2 (09:28→21:41)
[2022-03-16] MEDS: PANTOPRAZOLE 40 MG TAB PO SCH (09:28)
[2022-03-16] MEDS: GABAPENTIN 300 MG CAP PO SCH ×2 (09:28→21:41)
[2022-03-16] MEDS: ATORVASTATIN 20 MG TAB PO SCH (09:28)
[2022-03-16] MEDS: THIAMINE HCL 100 MG TAB PO SCH (09:29)
[2022-03-16] MEDS: FUROSEMIDE 40 MG TAB PO SCH (09:29)
[2022-03-16] MEDS: SACUBITRIL-VALSARTAN 24mg/26mg TAB PO SCH ×2 (09:29→21:42)
[2022-03-16] MEDS: CARVEDILOL 3.125 MG TAB PO SCH ×2 (09:30→21:42)
[2022-03-16] MEDS: NICOTINE 21MG/24 HR TOPICAL PATCH TD SCH (09:31)
[2022-03-16] MEDS: ENOXAPARIN SOD 80 MG/0.8ML SYRINGE SC SCH ×2 (09:31→21:41)
[2022-03-16 09:56] LABS: Hepatitis A Total Antibody Negative (Negative)
[2022-03-16 10:33] LABS: Urine WBC None Seen /hpf (0 - 3)
[2022-03-16 10:56] LABS: Urine Bacteria FEW /hpf (None Seen); Urine Blood Negative /uL (Negative); Urine Specific Gravity 1.009 (1.001-1.035)
[2022-03-16 11:13] LABS: Barbiturate Scree,Urine NEGATIVE (NEGATIVE); Benzodiazephine Screen, Urine NEGATIVE (NEGATIVE); Cannabinoid Screen, Urine NEGATIVE (NEGATIVE); Cocaine Screen, Urine NEGATIVE (NEGATIVE); Opiate Scree,Urine NEGATIVE (NEGATIVE); Phencyclidine Screen, Urine NEGATIVE (NEGATIVE)
[2022-03-16 11:15] LABS: Amphetamine Screen, Urine NEGATIVE (NEGATIVE)
[2022-03-16 11:16] LABS: BUN/Creatinine Ratio 8.5; Calcium 7.2 mg/dL (8.5-10.1); Potassium 3.8 mmol/L (3.5-5.1)
[2022-03-16 11:30] LABS: Hepatitis C Antibody Negative (Negative)
[2022-03-16 13:00] VITALS: BP 119/84
[2022-03-16] MEDS: ALBUTEROL SULF 2.5 MG/0.5ML(0.5%) NEB SOLN NEB PRN (16:15)
[2022-03-16] MEDS: IPRATROPIUM BROM 0.5 MG/2.5ML INH SOL NEB PRN (16:15)
[2022-03-16 16:42] VITALS: BP 119/73
[2022-03-16 22:00] VITALS: BP 147/97
[2022-03-16] MEDS: MORPHINE SULFATE INJ 2 MG/ml SYRG IV PRN (22:14)
[2022-03-17] VITALS (19 sets, daily range): BP systolic 80–134; BP diastolic 50–91
[2022-03-17] MEDS: IPRATROPIUM BROM 0.5 MG/2.5ML INH SOL NEB PRN ×4 (04:48→22:12)
[2022-03-17] MEDS: ALBUTEROL SULF 2.5 MG/0.5ML(0.5%) NEB SOLN NEB PRN ×4 (04:48→22:12)
[2022-03-17] MEDS: ACCU-CHEK COMFORT CURVE STRIP VI SCH ×4 (06:17→21:46)
[2022-03-17] MEDS: InsuLIN REG 1unit/0.01ml Soln (100units/ml) SC SCH ×4 (06:17→21:46)
[2022-03-17] MEDS: GABAPENTIN 300 MG CAP PO SCH ×2 (09:00→21:19)
[2022-03-17] MEDS: CARVEDILOL 3.125 MG TAB PO SCH ×2 (09:00→22:00)
[2022-03-17] MEDS: MAGNESIUM OXIDE 400 MG TAB PO SCH ×2 (09:00→21:18)
[2022-03-17] MEDS: FUROSEMIDE 40 MG TAB PO SCH (09:00)
[2022-03-17] MEDS: SACUBITRIL-VALSARTAN 24mg/26mg TAB PO SCH ×2 (09:01→22:05)
[2022-03-17] MEDS: PANTOPRAZOLE 40 MG TAB PO SCH ×2 (09:01→21:19)
[2022-03-17] MEDS: THIAMINE HCL 100 MG TAB PO SCH (09:01)
[2022-03-17] MEDS: ATORVASTATIN 20 MG TAB PO SCH (09:01)
[2022-03-17] MEDS: NICOTINE 21MG/24 HR TOPICAL PATCH TD SCH (09:07)
[2022-03-17] MEDS: ENOXAPARIN SOD 80 MG/0.8ML SYRINGE SC SCH (09:14)
[2022-03-17] MEDS ORDERED: LIDOCAINE VISCOUS 2% 15ML UD ONE (11:58)
[2022-03-17] MEDS ORDERED: MIDAZOLAM HCL 2MG/2ML 2ml VIAL (1mg/ml) ONE (12:13)
[2022-03-17] MEDS ORDERED: PROPOFOL 10 MG/ML 20 ML IV ONE (12:16)
[2022-03-17] MEDS ORDERED: LABETALOL HCL 5 MG/ML 4ML SYRINGE IV PRN (12:45)
[2022-03-17] MEDS ORDERED: ePHEDrine SULFATE 50 MG/ML AMP IV PRN (12:45)
[2022-03-17] MEDS ORDERED: ONDANSETRON HCL 4 MG/2 ML VIAL IV PRN (12:45)
[2022-03-17] MEDS: NOREPINEPHRINE 8 MG/250ML KIT 250 ML IV SCH (15:15)
[2022-03-17] MEDS ORDERED: SODIUM CHLORIDE 0.9% 500 ML IV ONE (15:15)
[2022-03-17] MEDS: SUCRALFATE 1 GM/10 ML ORAL SUSP PO SCH ×2 (17:21→21:18)
[2022-03-17] MEDS: APIXABAN 5 MG TAB PO SCH (22:00)
[2022-03-18] VITALS (43 sets, daily range): BP systolic 95–157; BP diastolic 64–109
[2022-03-18] MEDS: MORPHINE SULFATE INJ 2 MG/ml SYRG IV PRN ×4 (02:26→20:52)
[2022-03-18 04:02] LABS: Basophils # (auto) 0 10 ^3/uL (0-0.2); Basophils % (auto) 0.2 % (0.0-2.0); Eosinophils # (auto) 0 10 ^3/uL (0-0.8); Mean Corpuscular Volume 110.6 fL (80.0-100.0)
[2022-03-18 04:04] LABS: Hematocrit 34.7 % (41.0-53.0); Hemoglobin 11.9 g/dL (13.5-17.5); Lymphocytes # (auto) 0.6 10 ^3/uL (0.4-5.4); Lymphocytes % (auto) 8.8 % (10.0-50.0); Mean Corpuscular Hgb Conc. 34.4 g/dL (32.0-36.0); Monocytes # (auto) 0.4 10 ^3/uL (0-1.3); Monocytes % (auto) 5.6 % (0.0-12.0); Neutrophils # (auto) 5.4 10 ^3/uL (1.6-8.6); Neutrophils % (auto) 85.4 % (37.0-80.0); Nucleated Red Blood Cells % 0.1 %; Red Blood Cells 3.14 10^6/uL (4.5-5.90); White Blood Cell 6.3 10^3/uL (4.4-10.8)
[2022-03-18 04:20] LABS: BUN/Creatinine Ratio 26.2; Calcium 7.9 mg/dL (8.5-10.1); Potassium 4.7 mmol/L (3.5-5.1)
[2022-03-18 04:22] LABS: Bilirubin, Total 0.3 mg/dL (0.2-1.0); Total Protein 4.8 g/dL (6.4-8.2)
[2022-03-18] MEDS: ALBUTEROL SULF 2.5 MG/0.5ML(0.5%) NEB SOLN NEB PRN ×2 (06:18→18:17)
[2022-03-18] MEDS: IPRATROPIUM BROM 0.5 MG/2.5ML INH SOL NEB PRN ×2 (06:18→18:17)
[2022-03-18] MEDS: InsuLIN REG 1unit/0.01ml Soln (100units/ml) SC SCH ×4 (06:41→22:00)
[2022-03-18] MEDS: ACCU-CHEK COMFORT CURVE STRIP VI SCH ×4 (06:41→22:14)
[2022-03-18] MEDS: SUCRALFATE 1 GM/10 ML ORAL SUSP PO SCH ×4 (06:41→22:00)
[2022-03-18] MEDS: NICOTINE 21MG/24 HR TOPICAL PATCH TD SCH (09:22)
[2022-03-18] MEDS: PANTOPRAZOLE 40 MG TAB PO SCH ×2 (09:24→22:00)
[2022-03-18] MEDS: SACUBITRIL-VALSARTAN 24mg/26mg TAB PO SCH ×2 (09:24→22:00)
[2022-03-18] MEDS: MAGNESIUM OXIDE 400 MG TAB PO SCH ×2 (09:25→22:00)
[2022-03-18] MEDS: GABAPENTIN 300 MG CAP PO SCH ×2 (09:25→22:00)
[2022-03-18] MEDS: FUROSEMIDE 40 MG TAB PO SCH (09:25)
[2022-03-18] MEDS: THIAMINE HCL 100 MG TAB PO SCH (09:26)
[2022-03-18] MEDS: CARVEDILOL 3.125 MG TAB PO SCH ×2 (09:27→22:00)
[2022-03-18] MEDS: ATORVASTATIN 20 MG TAB PO SCH (09:28)
[2022-03-18] MEDS: APIXABAN 5 MG TAB PO SCH ×2 (09:34→22:00)
[2022-03-18] MEDS: NOREPINEPHRINE 8 MG/250ML KIT 250 ML IV SCH (15:15)
[2022-03-18] MEDS: ALBUTEROL SULF 2.5 MG/0.5ML(0.5%) NEB SOLN NEB SCH (22:10)
[2022-03-18] MEDS: IPRATROPIUM BROM 0.5 MG/2.5ML INH SOL NEB SCH (22:10)
[2022-03-18] MEDS ORDERED: SODIUM CHLORIDE 0.9% 250 ML IV ONE (23:45)
[2022-03-19] VITALS (55 sets, daily range): BP systolic 78–154; BP diastolic 47–96
[2022-03-19 00:53] LABS: Magnesium 1.3 mg/dL (1.6-2.6); Potassium 4.6 mmol/L (3.5-5.1)
[2022-03-19] MEDS ORDERED: DIGOXIN (250MCG/ML) 2 ML AMPULE IV ONE ×2 (01:00→02:00)
[2022-03-19] MEDS: ALBUTEROL SULF 2.5 MG/0.5ML(0.5%) NEB SOLN NEB SCH ×6 (02:29→22:25)
[2022-03-19] MEDS: IPRATROPIUM BROM 0.5 MG/2.5ML INH SOL NEB SCH ×6 (02:41→22:25)
[2022-03-19] MEDS ORDERED: AMIODARONE HCL (50 MG/ ML) 3 ML VIAL IV ONE (02:56)
[2022-03-19] MEDS ORDERED: AMIODARONE 450mg/250ml AE 250 ML IV SCH (03:00)
[2022-03-19] MEDS ORDERED: AMIODARONE HCL 150 MG in D5W 5% 100 ML IV ONE (03:00)
[2022-03-19] MEDS: MAGNESIUM SULFATE 1GM/100ML 100 ML IV SCH ×2 (04:00→05:07)
[2022-03-19] MEDS: InsuLIN REG 1unit/0.01ml Soln (100units/ml) SC SCH ×4 (06:25→21:36)
[2022-03-19] MEDS: SUCRALFATE 1 GM/10 ML ORAL SUSP PO SCH ×4 (06:25→21:22)
[2022-03-19] MEDS: ACCU-CHEK COMFORT CURVE STRIP VI SCH ×4 (06:25→21:24)
[2022-03-19] MEDS: AMIODARONE 450mg/250ml AE 250 ML IV SCH ×2 (09:00→23:52)
[2022-03-19 09:44] LABS: Hematocrit 34.2 % (41.0-53.0); Hemoglobin 11.4 g/dL (13.5-17.5); Mean Corpuscular Hemoglobin 36.8 pg (28.0-32.0); Mean Corpuscular Hgb Conc. 33.4 g/dL (32.0-36.0); Mean Corpuscular Volume 110.3 fL (80.0-100.0); Red Cell Distribution Width 16.2 % (11.8-14.3); White Blood Cell 16.1 10^3/uL (4.4-10.8)
[2022-03-19 09:54] LABS: Basophils % (manual) 0 (0.0-2.0); Blast Cells 0; Eosinophils % (manual) 0 (0-7); Metamyelocytes % 0; Myelocytes % 0; Promyelocytes % 0; Reactive Lymphocytes 0
[2022-03-19] MEDS: THIAMINE HCL 100 MG TAB PO SCH (10:00)
[2022-03-19] MEDS: AMIODARONE HCL 200 MG TAB PO SCH ×2 (10:00→21:24)
[2022-03-19] MEDS: NICOTINE 21MG/24 HR TOPICAL PATCH TD SCH (10:00)
[2022-03-19] MEDS: GABAPENTIN 300 MG CAP PO SCH ×2 (10:00→21:23)
[2022-03-19] MEDS: PANTOPRAZOLE 40 MG TAB PO SCH ×2 (10:00→21:22)
[2022-03-19] MEDS: SACUBITRIL-VALSARTAN 24mg/26mg TAB PO SCH ×2 (10:00→21:23)
[2022-03-19] MEDS: APIXABAN 5 MG TAB PO SCH ×2 (10:00→21:23)
[2022-03-19] MEDS: FUROSEMIDE 40 MG TAB PO SCH (10:00)
[2022-03-19] MEDS: CARVEDILOL 3.125 MG TAB PO SCH ×2 (10:00→21:24)
[2022-03-19] MEDS: MAGNESIUM OXIDE 400 MG TAB PO SCH ×2 (10:00→21:24)
[2022-03-19] MEDS: ATORVASTATIN 20 MG TAB PO SCH (10:00)
[2022-03-19 10:12] LABS: Albumin 1.7 g/dL (3.4-5.0); BUN/Creatinine Ratio 17.9; Bilirubin, Total 0.3 mg/dL (0.2-1.0); Calcium 7.9 mg/dL (8.5-10.1); Potassium 4.5 mmol/L (3.5-5.1); Total Protein 4.9 g/dL (6.4-8.2)
[2022-03-19 12:07] LABS: Band Neutrophils % (manual) 50; Lymphocytes % (manual) 8 (10.0-50.0); Monocytes % (manual) 4 (0-12)
[2022-03-19] MEDS: MORPHINE SULFATE INJ 2 MG/ml SYRG IV PRN (21:25)
[2022-03-20] VITALS (33 sets, daily range): BP systolic 89–141; BP diastolic 55–93
[2022-03-20] MEDS: ALBUTEROL SULF 2.5 MG/0.5ML(0.5%) NEB SOLN NEB SCH ×4 (02:36→14:00)
[2022-03-20] MEDS: IPRATROPIUM BROM 0.5 MG/2.5ML INH SOL NEB SCH ×4 (02:36→14:00)
[2022-03-20] MEDS: MORPHINE SULFATE INJ 2 MG/ml SYRG IV PRN ×2 (03:03→11:07)
[2022-03-20 03:28] LABS: BUN/Creatinine Ratio 23.4; Calcium 7.9 mg/dL (8.5-10.1); Magnesium 1.6 mg/dL (1.6-2.6); Potassium 4.5 mmol/L (3.5-5.1)
[2022-03-20] MEDS: ACCU-CHEK COMFORT CURVE STRIP VI SCH ×2 (06:48→11:30)
[2022-03-20] MEDS: SUCRALFATE 1 GM/10 ML ORAL SUSP PO SCH ×2 (06:48→09:59)
[2022-03-20] MEDS: InsuLIN REG 1unit/0.01ml Soln (100units/ml) SC SCH ×2 (06:51→12:34)
[2022-03-20] MEDS ORDERED: MAGNESIUM SULFATE 1GM/100ML 100 ML IV ONE (08:00)
[2022-03-20] MEDS: THIAMINE HCL 100 MG TAB PO SCH (09:55)
[2022-03-20] MEDS: AMIODARONE HCL 200 MG TAB PO SCH (09:56)
[2022-03-20] MEDS: ATORVASTATIN 20 MG TAB PO SCH (09:57)
[2022-03-20] MEDS: CARVEDILOL 3.125 MG TAB PO SCH (09:57)
[2022-03-20] MEDS: APIXABAN 5 MG TAB PO SCH (09:57)
[2022-03-20] MEDS: SACUBITRIL-VALSARTAN 24mg/26mg TAB PO SCH (09:57)
[2022-03-20] MEDS: GABAPENTIN 300 MG CAP PO SCH (09:58)
[2022-03-20] MEDS: FUROSEMIDE 40 MG TAB PO SCH (09:58)
[2022-03-20] MEDS: MAGNESIUM OXIDE 400 MG TAB PO SCH (09:58)
[2022-03-20] MEDS: NICOTINE 21MG/24 HR TOPICAL PATCH TD SCH (09:59)
[2022-03-20] MEDS: PANTOPRAZOLE 40 MG TAB PO SCH (09:59)
[2022-03-20] MEDS ORDERED: DIGOXIN 0.125 MG TAB PO SCH (10:00)
[2022-03-20] MEDS ORDERED: DIGO1TAB48 PO (10:28)
[2022-03-20] MEDS ORDERED: PANT40T PO (10:28)
[2022-03-20] MEDS ORDERED: SUCR1SUS10 PO (10:28)
[2022-03-20] MEDS ORDERED: ALBUAER3 IN (11:50)
== END 2022-03-20 16:50 | disposition home or self-care (01) | DRG 241 ==
LOC: ER 14:56 → TELE 18:37 → TELE-EAST 03-14 12:11 → TELE 03-17 15:11 → DOU IN ICU 03-17 19:28 → TELE-WESTW 03-18 14:04 → DOU IN ICU 03-19 04:00
PROVIDERS: ADMIT Nurse Practitioner Family; ATTEND Internal Medicine
PROC: 0DB68ZX Excision of Stomach, Via Natural or Artificial Opening Endoscopic, Diagnostic (ICD-10-PCS; 2022-03-17)
PROC: 0DB38ZX Excision of Lower Esophagus, Via Natural or Artificial Opening Endoscopic, Diagnostic (ICD-10-PCS; 2022-03-17)
PROC: 5A09357 Assistance with Respiratory Ventilation, Less than 24 Consecutive Hours, Continuous Positive Airway Pressure (ICD-10-PCS; 2022-03-17)
PROC: 0DB98ZX Excision of Duodenum, Via Natural or Artificial Opening Endoscopic, Diagnostic (ICD-10-PCS; principal; 2022-03-17 12:08)
DX: K29.70 Gastritis, unspecified, without bleeding (principal); J96.21 Acute and chronic respiratory failure with hypoxia; I50.43 Acute on chronic combined systolic (congestive) and diastolic (congestive) heart failure; I42.8 Other cardiomyopathies; I11.0 Hypertensive heart disease with heart failure; E11.51 Type 2 diabetes mellitus with diabetic peripheral angiopathy without gangrene; I95.9 Hypotension, unspecified; I47.1 Supraventricular tachycardia; J44.1 Chronic obstructive pulmonary disease with (acute) exacerbation; E88.09 Other disorders of plasma-protein metabolism, not elsewhere classified; E87.6 Hypokalemia; K25.9 Gastric ulcer, unspecified as acute or chronic, without hemorrhage or perforation; K29.80 Duodenitis without bleeding; K22.10 Ulcer of esophagus without bleeding; I48.20 Chronic atrial fibrillation, unspecified; I48.0 Paroxysmal atrial fibrillation; J98.11 Atelectasis; E78.5 Hyperlipidemia, unspecified; E83.42 Hypomagnesemia; F10.10 Alcohol abuse, uncomplicated; F17.210 Nicotine dependence, cigarettes, uncomplicated; G89.29 Other chronic pain; K21.9 Gastro-esophageal reflux disease without esophagitis; R07.0 Pain in throat; K44.9 Diaphragmatic hernia without obstruction or gangrene; K52.9 Noninfective gastroenteritis and colitis, unspecified; Z79.899 Other long term (current) drug therapy; Z80.3 Family history of malignant neoplasm of breast; Z82.0 Family history of epilepsy and other diseases of the nervous system; Z82.49 Family history of ischemic heart disease and other diseases of the circulatory system; Z87.11 Personal history of peptic ulcer disease; Z99.81 Dependence on supplemental oxygen; Z90.49 Acquired absence of other specified parts of digestive tract
CPT/HCPCS: 36415; 36600; 71045; 80048; 80053; 80061; 80307; 81001; 82805; 82962; 83036; 83735; 83880; 84100; 84132; 84443; 84484; 85007; 85025; 85027; 85379; 85610; 85730; 86704; 86706; 86708; 86803; 87081; 87340; 87426; 93005; 93306; 93925; 94640; 94660; 96365; 96366; 96368; G0378; J2250; J2704; J3480; J7060

== ENCOUNTER → 2022-03-13 | Day surgery (SDC) | payer MEDICAID ==
[2022-03-11 13:23] LABS: Basophils # (auto) 0.1 10 ^3/uL (0-0.2); Eosinophils # (auto) 0.1 10 ^3/uL (0-0.8); Eosinophils % (auto) 0.7 % (0.0-7.0); Neutrophils # (auto) 7.4 10 ^3/uL (1.6-8.6); Nucleated Red Blood Cells % 0.1 %; White Blood Cell 10.1 10^3/uL (4.4-10.8)
[2022-03-11 13:24] LABS: Basophils % (auto) 0.6 % (0.0-2.0); Hematocrit 44.1 % (41.0-53.0); Hemoglobin 15.2 g/dL (13.5-17.5); Lymphocytes # (auto) 1.8 10 ^3/uL (0.4-5.4); Lymphocytes % (auto) 18.1 % (10.0-50.0); Mean Corpuscular Hemoglobin 37.9 pg (28.0-32.0); Mean Corpuscular Hgb Conc. 34.6 g/dL (32.0-36.0); Mean Corpuscular Volume 109.6 fL (80.0-100.0); Monocytes # (auto) 0.7 10 ^3/uL (0-1.3); Monocytes % (auto) 7.1 % (0.0-12.0); Neutrophils % (auto) 73.5 % (37.0-80.0); Red Blood Cells 4.02 10^6/uL (4.5-5.90); Red Cell Distribution Width 16.1 % (11.8-14.3)
[2022-03-11 13:42] LABS: INR 1.03 (0.9-1.15); Partial Thromboplastin Time 23.6 sec (24.6-33.4)
[2022-03-11 13:57] LABS: Albumin 2.7 g/dL (3.4-5.0); Calcium 7.9 mg/dL (8.5-10.1)
[2022-03-11 14:01] LABS: BUN/Creatinine Ratio 7.4; Bilirubin, Total 1.4 mg/dL (0.2-1.0)
[2022-03-11 14:08] LABS: Potassium 2.9 mmol/L (3.5-5.1)
[~2022-03-13] VITALS: Ht 182.9 cm; Wt 83.9 kg
[~2022-03-13] MED LIST changes: +ATO40T PO; -BUPIVACAINE HCL 0.25% P/F 10 ML VIAL ONE; -DOXY-346 PO; +FLUT1AER6 IN; -FLUT250M2 INH; +GABA300C10 PO; -IOHEXOL 300 MG/ML 100ML BOTTLE IJ ONE; +IPRIH IN; -PRED20TA2 PO; +SACU1TAB PO; -methylPREDNISolone ACETATE 80 MG/ML VL ONE
[2022-03-13 13:27] VITALS: BP 95/47
[2022-03-13 14:24] LABS: Basophils # (auto) 0.1 10 ^3/uL (0-0.2); Eosinophils # (auto) 0.1 10 ^3/uL (0-0.8); Hemoglobin 14.7 g/dL (13.5-17.5); Lymphocytes # (auto) 2.9 10 ^3/uL (0.4-5.4); Red Cell Distribution Width 16.5 % (11.8-14.3)
[2022-03-13 14:26] LABS: Basophils % (auto) 0.8 % (0.0-2.0); Eosinophils % (auto) 1.1 % (0.0-7.0); Hematocrit 43.2 % (41.0-53.0); Lymphocytes % (auto) 31.5 % (10.0-50.0); Mean Corpuscular Hemoglobin 37.4 pg (28.0-32.0); Mean Corpuscular Hgb Conc. 34.1 g/dL (32.0-36.0); Mean Corpuscular Volume 109.6 fL (80.0-100.0); Monocytes # (auto) 0.7 10 ^3/uL (0-1.3); Monocytes % (auto) 7.1 % (0.0-12.0); Neutrophils # (auto) 5.4 10 ^3/uL (1.6-8.6); Neutrophils % (auto) 59.5 % (37.0-80.0); Nucleated Red Blood Cells % 0.3 %; Red Blood Cells 3.94 10^6/uL (4.5-5.90); White Blood Cell 9.2 10^3/uL (4.4-10.8)
[2022-03-13 14:28] LABS: Calcium 7.6 mg/dL (8.5-10.1)
[2022-03-13 14:34] LABS: BUN/Creatinine Ratio 12.6
[2022-03-13 14:44] LABS: Potassium 2.5 mmol/L (3.5-5.1)
== END | disposition home or self-care (01) ==
LOC: GI 12:56
PROVIDERS: ATTEND Internal Medicine Gastroenterology
DX: R10.13 Epigastric pain (principal); K21.00 Gastro-esophageal reflux disease with esophagitis, without bleeding; Z20.822 Contact with and (suspected) exposure to COVID-19; Z53.8 Procedure and treatment not carried out for other reasons
CPT/HCPCS: 36415; 80048; 80053; 82962; 85025; 85610; 85730; U0003